=== PATIENT | female | born 1950 | race Caucasian/White ===

== ENCOUNTER 2017-09-16 01:44 | Inpatient (IN) | payer MEDICARE, OTHER ==
[~2017-09-16] VITALS: Ht 165.1 cm; Wt 43.5 kg
--- NOTE | 2017-09-16 01:52 | NUR ---
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 HX COPD. PATIENT IS ALERT AND RESPONSIVE. TACHYPENIEC, TACHYCARDIC. NONDIAPHORETIC. PLACED ON CARDIAC AND VS MONITORING. GOWNED. COMFORT MEASURES RENDERED. KEPT HOB ELEVATED. RT AT BEDSIDE.
--- NOTE | 2017-09-16 01:55 | NUR ---
STARTED A SALINE LOCK ON THE RFA G20, BLOOD DRAWN SENT TO LAB.
[2017-09-16] MEDS ORDERED: methylPREDNISolone SOD SUCC 125 MG/2ML VIAL ONE (01:58)
[2017-09-16] MEDS ORDERED: methylPREDNISolone SOD SUCC 125 MG/2ML VIAL IV ONE (02:00)
[2017-09-16] MEDS ORDERED: IPRATROPIUM NEB FS 0.5 MG/2.5 ML AMPUL.NEB NEB ONE (02:00)
[2017-09-16] MEDS ORDERED: ALBUTEROL FS 2.5 MG/3 ML VIAL.NEB CONTNEB ONE (02:00)
[2017-09-16 02:32] LABS: BASOPHILS % (AUTO) 0.2 % (0.0-2.0); HEMATOCRIT 40 % (33-45); HEMOGLOBIN 13.1 g/dL (11.5-14.8); LYMPHOCYTES # (AUTO) 3.4 /CMM (0.8-4.8); LYMPHOCYTES % (AUTO) 18.2 % (20.0-44.0); MEAN CORPUSCULAR HEMOGLOBIN 31 PG (26.0-33.0); MEAN CORPUSCULAR HGB CONC 33 g/dl (31.0-36.0); MEAN CORPUSCULAR VOLUME 95 fL (82-100); MONOCYTES # (AUTO) 0.9 /CMM (0.1-1.30); MONOCYTES % (AUTO) 4.9 % (2.0-12.0); NEUTROPHILS # (AUTO) 14.4 /CMM (1.8-8.9); NEUTROPHILS % (AUTO) 76.7 % (43.0-81.0); PLATELET COUNT (AUTO) 343 /CMM (150-450); RDW COEFFICIENT OF VARIATION 13.4 (11.5-15.0); RED BLOOD CELL COUNT(AUTO) 4.18 MIL/uL (4.0-5.2); WHITE BLOOD COUNT (AUTO) 18.8 K/uL (4.3-11.0)
[2017-09-16 02:41] LABS: CALCIUM, SERUM 9.7 mg/dL (8.5-10.1); CARBON DIOXIDE 33 mmol/L (21-32); CHLORIDE 94 mmol/L (98-107); CREATININE 0.7 mg/dL (0.6-1.3); GLUCOSE 138 mg/dL (74-106); SODIUM SERUM 138 mmol/L (136-145); UREA NITROGEN, BLOOD 12 mg/dL (7-18)
[2017-09-16 02:48] LABS: BAND % (MANUAL) 10 % (0.0-5.0); LYMPHOCYTES % (MANUAL) 22 % (16-48); MONOCYTES % (MANUAL) 5 % (0-11.0); NEUTROPHILS % (MANUAL) 63 (42-76)
[2017-09-16 02:51] LABS: TROPONIN I < 0.017 ng/mL (0.00-0.056)
[2017-09-16 02:54] LABS: ALANINE AMINOTRANSFERASE 27 U/L (12-78); ALBUMIN 3.7 g/dL (3.4-5.0); ALKALINE PHOSPHATASE 97 U/L (46-116); ASPARTATE AMINOTRANSFERASE 44 U/L (15-37); B-TYPE NATRIURETIC PEPTIDE 264 PG/ML (0-125); BILIRUBIN,DIRECT 0.1 mg/dL (0.0-0.2); BILIRUBIN,TOTAL 0.3 mg/dL (0.2-1.0); TOTAL PROTEIN, SERUM 8.5 g/dL (6.4-8.2)
[2017-09-16] MEDS ORDERED: ASPI-1169 PO (03:27)
--- NOTE | 2017-09-16 04:03 | NUR ---
PATIENT REPORTS FEELING BETTER POST BREATHING TREATMENT.
[2017-09-16] MEDS ORDERED: AZTREONAM 1 G VIAL ONE (04:15)
[2017-09-16] MEDS ORDERED: POTASSIUM CHLORIDE 20 MEQ TAB.PRT.SR PO ONE ×2 (04:27→04:30)
[2017-09-16] MEDS ORDERED: AZTREONAM 1 G in IV NS 0.9% 100 ML IV ONE (04:30)
[2017-09-16] MEDS ORDERED: LEVOFLOXACIN 750 MG /D5W 150ML PIGGYBACK IV ONE (04:30)
--- NOTE | 2017-09-16 04:31 | NUR ---
REPORT GIVEN TO IRINA NUNN FOR ADMISSION AND CYDNEY.
[2017-09-16] MEDS ORDERED: Z GUARD REMEDY 2 OZ OINT TP PRN (05:00)
--- NOTE | 2017-09-16 05:07 | NUR ---
TRANSFERRED PATIENT TO TELE BED 102 VIA ALS PROTOCOL, NO INCIDENT NOTED. ENDORSED TO IRINA FERGUSON ORDER TO BE GIVEN.
[2017-09-16 05:35] VITALS: BP 120/81
[2017-09-16] MEDS ORDERED: LEVOFLOXACIN 750 MG /D5W 150ML 150 ML IV ONE (06:00)
--- NOTE | 2017-09-16 06:00 | NUR ---
RN NOTES 05-30AM - ADMITTED A 66 YEARS OLD FEMALE AOX4 VERBALLY RESPONSIVE. PT IS UNDER EPIC RECEIVING DR. IS DR. ARSHAD. DX. WITH SEPSIS PT HAD HS. OF CHF,COPD, HTN, UTERINE CANCER, CAD ALLERGIC TO OPIOIDS- MEPERIDINE AND RELATED. WITH O2 2LPM VIA NC . SATING 94%. TELE MONITOR PLACED REVEALS ST HR 130'S RESP 32, BP 120/81MMHG, TEMP 99 DEG. FAHRENHEIT SATURATION 94%. WITH IV SITE ON RFA G 20 INTACT AND PATENT WITH ONGOING IV ATB CONTINUE FROM ER . NO ASE NOTED. AMBULATE BUT NOTED WITH SOB EXACERBATION. SKIN ASSESSMENT DONE SKIN IS INTACT . INSTRUCTED TO USED CALL LIGHT KEPT CALL LIGHT KEPT WITHIN EASY REACH. KEPT PT CLEAN AND DRY. WILL ENDORSED CONTINUITY OF CARE TO AM NURSE.
[2017-09-16] MEDS: LEVOFLOXACIN 750 MG /D5W 150ML 750 MG in PREMIX 1 EA IV SCH (06:03)
[2017-09-16] MEDS ORDERED: ACETAMINOPHEN 325 MG TABLET ONE (06:33)
[2017-09-16] MEDS: ACETAMINOPHEN 325 MG TABLET PO PRN (06:36)
--- NOTE | 2017-09-16 07:05 | NUR ---
RN INITIAL NOTE PATIENT RECEIVED IN BED. PATIENT IS AWAKE, ALERT AND ORIENTED. ABLE TO MAKE NEEDS KNOWN. NO S/S OF PAIN OR DISCOMFORT. DENIES PAIN AT THIS TIME. SINUS TACHY ON TELE MONITOR. RESPIRATIONS ARE EVEN AND UNLABORED. NO S/S OF RESPIRATORY DISTRESS OR SOB. SATING WELL ON 3L NASAL CANULA. SKIN IS WARM AND DRY TO TOUCH. IV SITE FLUSHED, PATENT. SAFETY PRECAUTIONS IMPLEMENTED, BED IN LOCKED, LOW POSITION WITH TWO SIDE RAILS UP. CALL LIGHT AND BELONGINGS WITHIN EASY REACH. WILL CONTINUE TO MONITOR.
[2017-09-16] MEDS ORDERED: TIOT18CA3 INH (07:47)
[2017-09-16] MEDS ORDERED: BUDE10.2 INH (07:47)
[2017-09-16] MEDS ORDERED: THEO300T22 PO (07:47)
[2017-09-16] MEDS ORDERED: CITA10TA9 PO (07:47)
[2017-09-16] MEDS ORDERED: MONT10TA22 PO (07:47)
[2017-09-16] MEDS: IPRATROPIUM NEB FS 0.5 MG/2.5 ML AMPUL.NEB NEB SCH ×3 (07:58→19:51)
[2017-09-16] MEDS: ALBUTEROL FS 2.5 MG/0.5 ML VIAL.NEB NEB SCH ×3 (07:58→19:51)
[2017-09-16 08:00] VITALS: BP 109/63
[2017-09-16] MEDS: methylPREDNISolone SOD SUCC 40 MG/ML VIAL IV SCH ×3 (08:30→16:30)
[2017-09-16] MEDS: ASPIRIN 81 MG TAB.CHEW PO SCH (08:30)
[2017-09-16] MEDS: MAGNESIUM HYDROXIDE 30 ML UDC PO PRN (09:59)
[2017-09-16] MEDS: ONDANSETRON HCL/PF 4 MG/2 ML VIAL IVP PRN ×2 (10:52→22:31)
[2017-09-16] MEDS: HYDROCODONE/APAP 5/325MG 1 EACH TABLET PO PRN (10:53)
[2017-09-16 12:00] VITALS: BP 126/66
[2017-09-16] MEDS: diphenhydrAMINE HCL 50 MG/ML VIAL IV PRN (15:49)
[2017-09-16 16:00] VITALS: BP 122/74
--- NOTE | 2017-09-16 19:08 | NUR ---
RN CLOSING NOTE CARRIED OUT ALL MD ORDERS, ANTICIPATED PT NEEDS. KEPT CLEAN AND DRY. WILL GIVE REPORT TO PM RN./
--- NOTE | 2017-09-16 19:20 | NUR ---
RN INITIAL NOTES RECEIVED PATIENT IN BED, SLEEPING WELL, EASILY AROUSABLE WITH VERBAL AND TACTILE STIMULI. PATIENT DENIES ANY PAIN AND DISCOMFORT. DENIES ANY SOB. PATIENT ON 2LPM OF O2 VIA NC, STILL WITH DIMINISHED BREATH SOUNDS ON AUSCULTATION. PATIENT WITH R FOREARM PIV, FLUSHED AND PATENT, NO SIGNS OF INFILTRATION. PATIENT IS SR ON TELE WITH HR OF 92. PATIENT'S NEEDS ANTICIPATED AND MET AT THIS TIME. BED IN LOW AND LOCKED POSITION. CALL LIGHT IN REACH. WILL MONITOR CLOSELY.
[2017-09-16 20:00] VITALS: BP 119/75
[2017-09-17] VITALS: BP 101/67
[2017-09-17] MEDS: ALBUTEROL FS 2.5 MG/0.5 ML VIAL.NEB NEB SCH ×4 (00:56→20:07)
[2017-09-17] MEDS: IPRATROPIUM NEB FS 0.5 MG/2.5 ML AMPUL.NEB NEB SCH ×4 (00:56→20:07)
[2017-09-17 04:00] VITALS: BP 123/75
[2017-09-17] MEDS: LEVOFLOXACIN 750 MG /D5W 150ML 750 MG in PREMIX 1 EA IV SCH (05:06)
--- NOTE | 2017-09-17 06:35 | NUR ---
RN CLOSING NOTES PATIENT WITH NO ACUTE CHANGE IN CONDITION OBSERVED OVERNIGHT. PATIENT STILL OBSERVED WITH SOB WITH EXERTION AND ADLS. REST PERIODS PROVIDED AND SAFETY AND COMFORT ENSURED. PATIENT'S NEEDS ANTICIPATED AND MET. ALL DUE MEDS GIVEN ORDERED. AM LABS DRAW. WILL ENDORSE ACCORDINGLY FOR CONTINUITY OF CARE.
[2017-09-17 07:32] LABS: BILIRUBIN,TOTAL 0.1 mg/dL (0.2-1.0); CALCIUM, SERUM 9.9 mg/dL (8.5-10.1); CREATININE 0.7 mg/dL (0.6-1.3); MAGNESIUM 2.1 mg/dL (1.8-2.4); PHOSPHORUS 2.9 mg/dL (2.5-4.9); POTASSIUM 3.7 mmol/L (3.5-5.1); TOTAL PROTEIN, SERUM 7.5 g/dL (6.4-8.2)
[2017-09-17 07:43] LABS: BASOPHILS % (AUTO) 0.1 % (0.0-2.0); HEMATOCRIT 35 % (33-45); HEMOGLOBIN 11.5 g/dL (11.5-14.8); LYMPHOCYTES # (AUTO) 1.2 /CMM (0.8-4.8); LYMPHOCYTES % (AUTO) 8.6 % (20.0-44.0); MEAN CORPUSCULAR HEMOGLOBIN 31 PG (26.0-33.0); MEAN CORPUSCULAR HGB CONC 33 g/dl (31.0-36.0); MEAN CORPUSCULAR VOLUME 96 fL (82-100); MONOCYTES # (AUTO) 0.9 /CMM (0.1-1.30); MONOCYTES % (AUTO) 6.6 % (2.0-12.0); NEUTROPHILS # (AUTO) 11.3 /CMM (1.8-8.9); NEUTROPHILS % (AUTO) 84.7 % (43.0-81.0); PLATELET COUNT (AUTO) 282 /CMM (150-450); RDW COEFFICIENT OF VARIATION 13.6 (11.5-15.0); RED BLOOD CELL COUNT(AUTO) 3.67 MIL/uL (4.0-5.2); WHITE BLOOD COUNT (AUTO) 13.4 K/uL (4.3-11.0)
[2017-09-17 07:48] LABS: THYROID STIMULATING HORMONE 0.606 uIU/mL (0.358-3.74)
[2017-09-17 08:00] VITALS: BP 115/71
--- NOTE | 2017-09-17 08:10 | NUR ---
RN INITIAL NOTE PATIENT RECEIVED IN BED, AWAKE, ALERT AND ORIENTED. ABLE TO MAKE NEEDS KNOWN. NO S/S OF PAIN OR DISCOMFORT. DENIES PAIN AT THIS TIME. SINUS RHYTHM ON TELE MONITOR. NO S/S OF RESPIRATORY DISTRESS OR SOB. SATING WELL ON 2L NASAL CANULA. SKIN IS WARM AND DRY TO TOUCH. IV SITE FLUSHED, PATENT. SAFETY PRECAUTIONS IMPLEMENTED, BED IN LOCKED, LOW POSITION WITH TWO SIDE RAILS UP. CALL LIGHT WITHIN EASY REACH. WILL CONTINUE TO MONITOR.
[2017-09-17] MEDS: ASPIRIN 81 MG TAB.CHEW PO SCH (08:30)
[2017-09-17] MEDS: methylPREDNISolone SOD SUCC 40 MG/ML VIAL IV SCH ×3 (08:30→17:31)
[2017-09-17 09:19] LABS: APPEARANCE,URINE CLOUDY (CLEAR); BILIRUBIN,URINE NEGATIVE (NEGATIVE); BLOOD, URINE NEGATIVE Ery/uL (NEGATIVE); COLOR,URINE YELLOW (YELLOW); KETONES,URINE NEGATIVE (NEGATIVE); LEUKOCYTE ESTERASE ,URINE NEGATIVE (NEGATIVE); NITRITE, URINE NEGATIVE (NEGATIVE); PROTEIN,URINE TRACE mg/dl (NEGATIVE); UGLUCOSE NEGATIVE (NEGATIVE); UROBILINOGEN,URINE 0.2 EU/dL (0.2)
[2017-09-17 09:50] LABS: BACTERIA,URINE Few /HPF (None Seen); RBC,URINE NONE SEEN /HPF (0-2); SQUAMOUS EPITHELIAL CELL,UR Few /HPF (None Seen); WBC,URINE 0-2 /HPF (0-3)
[2017-09-17 09:51] LABS: URINE AMORPHOUS URATE Many /HPF (None Seen)
[2017-09-17] MEDS: HYDROCODONE/APAP 5/325MG 1 EACH TABLET PO PRN (10:14)
[2017-09-17 12:00] VITALS: BP 126/66
[2017-09-17] MEDS: MULTIVITAMINS,THERAGRAN 1 UDTAB TABLET PO SCH (15:20)
[2017-09-17] MEDS: ACETAMINOPHEN 325 MG TABLET PO PRN (15:33)
[2017-09-17 16:00] VITALS: BP 118/68
[2017-09-17] MEDS: BOOST PLUS FOOD-VANILLA 237 ML BOX PO SCH (17:00)
[2017-09-17] MEDS: MAG HYDROX/AL HYDROX/SIMETH 30 ML UDC PO PRN (17:39)
[2017-09-17] MEDS: MAGNESIUM HYDROXIDE 30 ML UDC PO PRN (17:40)
--- NOTE | 2017-09-17 19:15 | NUR ---
RN INITIAL NOTES RECEIVED PATIENT IN BED, AWAKE AND ALERT, ORIENTED. PATIENT DENIES ANY PAIN AND DISCOMFORT. DENIES ANY SOB. PATIENT ON 2LPM OF O2 VIA NC, STILL NOTED TO BE SHORT OF BREATH WITH EXERTION. PATIENT WITH R FOREARM PIV, FLUSHED AND PATENT, NO SIGNS OF INFILTRATION. PATIENT IS ST ON TELE WITH HR OF 102. PATIENT'S NEEDS ANTICIPATED AND MET AT THIS TIME. BED IN LOW AND LOCKED POSITION. CALL LIGHT IN REACH. WILL MONITOR CLOSELY.
[2017-09-17 20:00] VITALS: BP 132/79
[2017-09-17] MEDS: ASCORBIC ACID 500 MG TABLET PO SCH (21:44)
[2017-09-17] MEDS: CHOLECALCIFEROL 1,000 UNIT TABLET (VIT D3) PO SCH (21:44)
[2017-09-18] VITALS (8 sets, daily range): BP systolic 127–145; BP diastolic 67–89
[2017-09-18] MEDS: ALBUTEROL FS 2.5 MG/0.5 ML VIAL.NEB NEB SCH ×4 (02:00→19:30)
[2017-09-18] MEDS: IPRATROPIUM NEB FS 0.5 MG/2.5 ML AMPUL.NEB NEB SCH ×4 (02:00→19:46)
[2017-09-18] MEDS: LEVOFLOXACIN 750 MG /D5W 150ML 750 MG in PREMIX 1 EA IV SCH (04:15)
--- NOTE | 2017-09-18 06:30 | NUR ---
RN CLOSING NOTES NO ACUTE CHANGE IN CONDITION OBSERVED OVERNIGHT. PATIENT'S NEEDS ANTICIPATED AND MET. REST PERIODS PROVIDED WITH ADLS FOR NOTED SOB WITH EXERTION. PATIENT'S COMFORT ENSURED. FALL PRECAUTIONS OBSERVED AT ALL TIMES. INSERTED NEW IV SITE ON PATIENT'S L WRIST, G22, INTACT AND PATENT. ALL DUE MEDS GIVEN ORDERED. WILL ENDORSE ACCORDINGLY FOR CONTINUITY OF CARE.
--- NOTE | 2017-09-18 08:00 | NUR ---
RN CECE: pt.is awake, A/Ox3, no pain now, O2sat. 90-93%, slightly wheezing, going for resp/Tx, , SR, SBP over 100, got POC explanation
[2017-09-18] MEDS: methylPREDNISolone SOD SUCC 40 MG/ML VIAL IV SCH ×3 (10:03→17:11)
[2017-09-18] MEDS: MULTIVITAMINS,THERAGRAN 1 UDTAB TABLET PO SCH (10:03)
[2017-09-18] MEDS: ASCORBIC ACID 500 MG TABLET PO SCH (10:03)
[2017-09-18] MEDS: BOOST PLUS FOOD-VANILLA 237 ML BOX PO SCH ×2 (10:03→17:12)
[2017-09-18] MEDS: ASPIRIN 81 MG TAB.CHEW PO SCH (10:03)
[2017-09-18] MEDS: CHOLECALCIFEROL 1,000 UNIT TABLET (VIT D3) PO SCH (10:03)
--- NOTE | 2017-09-18 12:00 | NUR ---
RN CECE: is in room, updated with pt.condition, VS, I/O, resp.Tx, home meds verification/evaluation, see new orders
[2017-09-18] MEDS: ONDANSETRON HCL/PF 4 MG/2 ML VIAL IVP PRN (12:52)
[2017-09-18 14:43] LABS: ABG BASE EXCESS 9.9 mmol/L; ABG OXYGEN SATURATION 96.4 % (92.0-98.5); ABG PCO2 58.6 mmHg (35.0-45.0); ABG PH 7.411 (7.350-7.450); ABG PO2 93.3 mmHg (75.0-100.0); AaDO2 37.2 mmHg; COHb 0.3 % (0.5-1.5); MetHb 0.4 % (0.0-1.5); O2Hb 95.7 % (94.0-97.0); SITE, ABG Right Radial; VENT MODE, BG NC 2 L
[2017-09-18] MEDS: THEOPHYLLINE ANHYDROUS 300 MG TAB.SR.12H PO SCH ×2 (15:44→20:50)
--- NOTE | 2017-09-18 19:05 | NUR ---
RN OPENING NOTES RECEIVED REPORT FROM AM RN. PATIENT IN BED, A/A/O X4, ABLE TO MAKE NEEDS KNOWN. BREATHING EVEN & UNLABORED ON O2 1L VIA NC. DENIES SOB OR DIFFICULTY BREATHING. ON TELE SINUS RHYTHM. LEFT WRIST IV #22 INTACT & PATENT W/ DRESSING CDI, SALINE LOCKED. DENIES ANY PAIN OR DISCOMFORT @ THIS TIME. SAFETY MEASURES IN PLACE W/ SIDE RAILS UP, BED LOCKED & IN LOWEST POSITION & CALL LIGHT WITHIN REACH. WILL CONTINUE TO MONITOR.
[2017-09-18] MEDS: diphenhydrAMINE HCL 50 MG/ML VIAL IV PRN (20:49)
--- NOTE | 2017-09-18 23:45 | NUR ---
RN NOTES SPOKE W/ DENNIS VALENZUELA REGARDING PATIENT'S REQUEST FOR ATIVAN D/T HER ANXIETY & RESTLESSNESS. RECEIVED ORDER FOR ATIVAN 0.5MG PO X1. ORDER NOTED & CARRIED OUT. WILL CONTINUE TO MONITOR.
[2017-09-18] MEDS ORDERED: LORAZEPAM 0.5 MG TABLET ONE (23:50)
[2017-09-19] VITALS: BP 133/87
[2017-09-19] MEDS ORDERED: LORAZEPAM 0.5 MG TABLET PO ONE
[2017-09-19] MEDS: ALBUTEROL FS 2.5 MG/0.5 ML VIAL.NEB NEB SCH ×4 (01:01→19:14)
[2017-09-19] MEDS: IPRATROPIUM NEB FS 0.5 MG/2.5 ML AMPUL.NEB NEB SCH ×4 (01:01→19:13)
[2017-09-19] MEDS: ACETAMINOPHEN 325 MG TABLET PO PRN ×2 (03:47→20:07)
[2017-09-19 04:00] VITALS: BP 144/87
--- NOTE | 2017-09-19 04:00 | NUR ---
RN NOTES PATIENT REFUSED BATH & LINEN CHANGE. PER PATIENT, SHE WANTS TO REST & NOT IN THE MOOD. WILL ENDORSE TO AM SHIFT.
[2017-09-19] MEDS: LEVOFLOXACIN 750 MG /D5W 150ML 750 MG in PREMIX 1 EA IV SCH (05:25)
--- NOTE | 2017-09-19 07:22 | NUR ---
RN NOTES RECEIVED PT FROM GLOVE WRAPPER IN STABLE CONDITION, A&0X3, ON 2L NC SATING 93% NO SOB OR DISTRESS NOTED. ST ON THE TELE MONITOR HR 125. L WRIST 22G IV SITE INTACT NO IVF. NO COMPLAINTS OF PAIN. BED LOCKED AND IN LOWEST POSITION, CALL LIGHT WITHIN REACH, SIDE RAILS UPX3, WILL CONT TO ASHLIE.
[2017-09-19 08:00] VITALS: BP 136/80
[2017-09-19] MEDS: ASPIRIN 81 MG TAB.CHEW PO SCH (08:11)
[2017-09-19] MEDS: THEOPHYLLINE ANHYDROUS 300 MG TAB.SR.12H PO SCH ×2 (08:11→20:07)
[2017-09-19] MEDS: CHOLECALCIFEROL 1,000 UNIT TABLET (VIT D3) PO SCH (08:11)
[2017-09-19] MEDS: MULTIVITAMINS,THERAGRAN 1 UDTAB TABLET PO SCH (08:12)
[2017-09-19] MEDS: methylPREDNISolone SOD SUCC 40 MG/ML VIAL IV SCH ×3 (08:12→16:15)
[2017-09-19] MEDS: ASCORBIC ACID 500 MG TABLET PO SCH (08:12)
[2017-09-19] MEDS: BOOST PLUS FOOD-VANILLA 237 ML BOX PO SCH ×2 (09:00→16:16)
[2017-09-19 12:00] VITALS: BP 146/90
[2017-09-19] MEDS: ALPRAZOLAM 0.25 MG TABLET PO PRN ×2 (14:24→20:08)
[2017-09-19 16:00] VITALS: BP 146/90
--- NOTE | 2017-09-19 18:25 | NUR ---
RN NOTES PT REMAINED IN STABLE CONDITION THROUGHOUT THE SHIFT, ALL NEEDS MET, NO SIGNIFICANT CHANGES. NO COMPLAINTS OF PAIN. BED LOCKED, CALL LIGHT WITHIN REACH, WILL ENDORSE TO ONCOMING SHIFT.
--- NOTE | 2017-09-19 19:05 | NUR ---
RN OPENING NOTES RECEIVED REPORT FROM VINCENT NUNN. PATIENT IN BED, A/A/O X4, ABLE TO MAKE NEEDS KNOWN. BREATHING EVEN & UNLABORED ON O2 2L VIA NC. DENIES SOB OR DIFFICULTY BREATHING. ON TELE SINUS RHYTHM-SINUS TACH. LEFT WRIST IV #22 INTACT & PATENT W/ DRESSING CDI, SALINE LOCKED. DENIES ANY PAIN OR DISCOMFORT @ THIS TIME. SAFETY MEASURES IN PLACE W/ SIDE RAILS UP, BED LOCKED & IN LOWEST POSITION & CALL LIGHT WITHIN REACH. WILL CONTINUE TO MONITOR.
[2017-09-19 20:00] VITALS: BP 137/85
[2017-09-20] VITALS: BP 157/98
[2017-09-20] MEDS: ALBUTEROL FS 2.5 MG/0.5 ML VIAL.NEB NEB SCH ×2 (01:40→07:07)
[2017-09-20] MEDS: IPRATROPIUM NEB FS 0.5 MG/2.5 ML AMPUL.NEB NEB SCH ×2 (01:50→07:07)
[2017-09-20] MEDS: ONDANSETRON HCL/PF 4 MG/2 ML VIAL IVP PRN (02:39)
[2017-09-20 04:00] VITALS: BP 144/83
[2017-09-20] MEDS ORDERED: LEVOFLOXACIN (750 MG) 750 MG TABLET PO SCH (05:00)
[2017-09-20] MEDS: MAG HYDROX/AL HYDROX/SIMETH 30 ML UDC PO PRN (06:15)
--- NOTE | 2017-09-20 07:30 | NUR ---
TIME STUDY STATISTICIAN OPENING RECEIVED PATIENT DENIES PAIN, SOB OR DIFFICULTY BREATHING. PATIENT STATES SHE WANTS TO GO HOME TODAY HOWEVER SHE IS CONCERNED HER ANXIETY WILL PREVENT THAT. WILL GIVE PRN XANAX. PATIENT STATES SHE WAS TAKING A MEDICATION AND ABOUT A WEEK OR 2 AGO STOPPED IT COLD TURKEY AND SHE IS TRYING TO FIGURE OUT WHICH ONE IT WAS. PATIENT IS TACHYCARDIC AROUND 130'S AND SHE STATES THIS HAPPENS WHEN SHE GETS ANXIOUS AND IS TRYING TO CALM DOWN. WILL F/U WITH MD TODAY. PATIENT APPEARS STABLE AT THIS TIME. ALL NEEDS IN REACH, BED LOWERED AND LOCKED, RAILS UPX3 FOR SAFETY WITH BED ALARM ON. PATIENT INDEPENDENT IN BED. WILL ROUND Q2H OR LESS PER NEEDS.
[2017-09-20 08:00] VITALS: BP 145/92
[2017-09-20] MEDS: ASCORBIC ACID 500 MG TABLET PO SCH (08:16)
[2017-09-20] MEDS: THEOPHYLLINE ANHYDROUS 300 MG TAB.SR.12H PO SCH (08:17)
[2017-09-20] MEDS: ALPRAZOLAM 0.25 MG TABLET PO PRN (08:17)
[2017-09-20] MEDS: CHOLECALCIFEROL 1,000 UNIT TABLET (VIT D3) PO SCH (08:17)
[2017-09-20] MEDS: methylPREDNISolone SOD SUCC 40 MG/ML VIAL IV SCH (08:17)
[2017-09-20] MEDS: ASPIRIN 81 MG TAB.CHEW PO SCH (08:17)
[2017-09-20] MEDS: MULTIVITAMINS,THERAGRAN 1 UDTAB TABLET PO SCH (08:17)
[2017-09-20] MEDS: BOOST PLUS FOOD-VANILLA 237 ML BOX PO SCH (08:20)
--- NOTE | 2017-09-20 10:05 | NUR ---
FOLDER HAND NOTES DR GARCIA AT BEDSIDE. UPDATED MD ON PATIENT CONDITION AND TELEMETRY. ALSO PATIENT STATES ALMOST A MONTH AGO SHE STOPPED TAKING CELEXA. AWARE.
--- NOTE | 2017-09-20 10:45 | NUR ---
BIODIESEL PRODUCT DEVELOPMENT MANAGEREDUCATIONAL PROGRAM DIRECTOR PATIENT IV REMOVED PRESSURE AND DRESSING APPLIED NO BLEEDING NOTED. CATH TIP INTACT. PATIENT EDUCATED ON DC MATERIAL AND STATED UNDERSTANDING. PATIENT DID NOT WANT ME TO MAKE FOLLOW UP APPOINTMENT WITH DR LE OFFICE. GAVE PATIENT ADDRESS AND PHONE # FOR OFFICE. PATIENT SIGNED DC MATERIAL AND ALL BELONGINGS ACCOUNTED FOR. PATIENT HAS HOME O2 SET UP ALREADY AND PRIVATE TRANSPORT PROVIDED OXYGEN TANK UPON DISCHARGE. PATIENT GIVEN RX AND EDUCATED ON ALL PRESCRIPTIONS. PATIENT LEFT WITH ASSISTANCE YOVANI ZHU AND TAKEN TO PRIVATE VEHICLE NO COMPLICATIONS NOTED. PATIENT LEFT AT BASELINE CONDITION.
[2017-09-20] MEDS ORDERED: ALBU18HF2 INH (22:35)
[2017-09-20] MEDS ORDERED: FLUT1DIS3 IH (22:35)
[2017-09-20] MEDS ORDERED: LEVO500T75 PO (22:35)
[2017-09-20] MEDS ORDERED: PRED20TA PO (22:35)
[2017-09-20] MEDS ORDERED: ALPR0.25 PO (22:35)
== END 2017-09-20 10:51 | disposition home or self-care (01) | DRG 193 ==
LOC: ER 01:44 → TELE1 04:27
PROVIDERS: ADMIT Nurse Practitioner Acute Care; ATTEND Nurse Practitioner Acute Care
DX: J15.9 Unspecified bacterial pneumonia (principal); J96.01 Acute respiratory failure with hypoxia; E44.0 Moderate protein-calorie malnutrition; I50.32 Chronic diastolic (congestive) heart failure; J44.0 Chronic obstructive pulmonary disease with (acute) lower respiratory infection; J44.1 Chronic obstructive pulmonary disease with (acute) exacerbation; I25.10 Atherosclerotic heart disease of native coronary artery without angina pectoris; I11.0 Hypertensive heart disease with heart failure; E87.6 Hypokalemia; Z79.82 Long term (current) use of aspirin; Z87.891 Personal history of nicotine dependence; Z99.81 Dependence on supplemental oxygen; Z85.42 Personal history of malignant neoplasm of other parts of uterus; Z88.5 Allergy status to narcotic agent; Z79.899 Other long term (current) drug therapy
CPT/HCPCS: 36415; 36600; 71010-TC; 80048-TC; 80061-TC; 80076-TC; 81000-TC; 83605-TC; 83735-TC; 83880; 84100-TC; 84443-TC; 84484-TC; 85025-TC; 87040-TC; 87081-TC; A4216; A4606; J1200; J1956; J2405; J2920; J2930; J3490; J7030

== ENCOUNTER 2017-09-20 22:29 | Inpatient (IN) | payer MEDICARE, OTHER ==
[~2017-09-20] VITALS: Ht 154.9 cm; Wt 44.0 kg
[~2017-09-20 22:29] MED LIST: ASPI-1169 PO; BUDE10.2 INH; MONT10TA22 PO; THEO300T22 PO; TIOT18CA3 INH
[2017-09-20] MEDS ORDERED: IV NS 0.9% 1,000 ML IV ONE (22:31)
[2017-09-20] MEDS ORDERED: ALBUTEROL FS 2.5 MG/3 ML VIAL.NEB ONE (22:34)
[2017-09-20] MEDS ORDERED: IPRATROPIUM NEB FS 0.5 MG/2.5 ML AMPUL.NEB ONE (22:34)
[2017-09-20] MEDS ORDERED: FLUT1DIS3 IH (22:35)
[2017-09-20] MEDS ORDERED: ALPR0.25 PO (22:35)
[2017-09-20] MEDS ORDERED: PRED20TA PO (22:35)
[2017-09-20] MEDS ORDERED: LEVO500T75 PO (22:35)
[2017-09-20] MEDS ORDERED: ALBU18HF2 INH (22:35)
--- NOTE | 2017-09-20 22:35 | NUR ---
PT TO ER BED 5. PT BIB [facility] C/O SOB X 3 WEEKS. PER EMS PT SAT 80% ON ARRIVAL TO HOME. PT PLACED IN A GOWN AND ON COMMERCIAL LAWN SPECIALIST. VSS/RESP EVEN UNLABORED/NAD NOTED/SKIN WARM AND DRY/DENIES N-V-D/AOX4. AWAITING MD CALLOWAY. PT PLACE ON N/C 4LPM; O2 SAT 96%.
--- NOTE | 2017-09-20 22:35 | NUR ---
RT AT BEDSIDE FOR NEB TX PER MD ORDERS.
[2017-09-20] MEDS ORDERED: methylPREDNISolone SOD SUCC 125 MG/2ML VIAL ONE (22:40)
--- NOTE | 2017-09-20 22:40 | NUR ---
BLOOD DRAWN FROM IV AND HANDED OVER TO LAB AT BEDSIDE.
[2017-09-20 22:45] LABS: BASOPHILS % (AUTO) 0.2 % (0.0-2.0); EOSINOPHILS % (AUTO) 0.2 % (0.0-6.0); HEMATOCRIT 40 % (33-45); HEMOGLOBIN 12.9 g/dL (11.5-14.8); LYMPHOCYTES # (AUTO) 2.9 /CMM (0.8-4.8); LYMPHOCYTES % (AUTO) 18.1 % (20.0-44.0); MEAN CORPUSCULAR HEMOGLOBIN 31 PG (26.0-33.0); MEAN CORPUSCULAR HGB CONC 32 g/dl (31.0-36.0); MEAN CORPUSCULAR VOLUME 95 fL (82-100); MONOCYTES # (AUTO) 1.4 /CMM (0.1-1.30); MONOCYTES % (AUTO) 8.4 % (2.0-12.0); NEUTROPHILS # (AUTO) 11.8 /CMM (1.8-8.9); NEUTROPHILS % (AUTO) 73.1 % (43.0-81.0); PLATELET COUNT (AUTO) 497 /CMM (150-450); RDW COEFFICIENT OF VARIATION 13.4 (11.5-15.0); WHITE BLOOD COUNT (AUTO) 16.2 K/uL (4.3-11.0)
--- NOTE | 2017-09-20 22:50 | NUR ---
XRAY AT BEDSIDE.
[2017-09-20 22:58] LABS: CALCIUM, SERUM 9.4 mg/dL (8.5-10.1); CARBON DIOXIDE 38 mmol/L (21-32); CHLORIDE 96 mmol/L (98-107); CREATININE 0.7 mg/dL (0.6-1.3); GLUCOSE 124 mg/dL (74-106); POTASSIUM 4.1 mmol/L (3.5-5.1); SODIUM SERUM 139 mmol/L (136-145); UREA NITROGEN, BLOOD 18 mg/dL (7-18)
[2017-09-20] MEDS ORDERED: IPRATROPIUM NEB FS 0.5 MG/2.5 ML AMPUL.NEB NEB ONE (23:00)
[2017-09-20] MEDS ORDERED: ALBUTEROL FS 2.5 MG/3 ML VIAL.NEB NEB ONE (23:00)
[2017-09-20] MEDS ORDERED: methylPREDNISolone SOD SUCC 125 MG/2ML VIAL IV ONE (23:00)
[2017-09-20 23:04] LABS: ALANINE AMINOTRANSFERASE 25 U/L (12-78); ALBUMIN 3.5 g/dL (3.4-5.0); ALKALINE PHOSPHATASE 83 U/L (46-116); ASPARTATE AMINOTRANSFERASE 24 U/L (15-37); BILIRUBIN,TOTAL 0.2 mg/dL (0.2-1.0); TOTAL PROTEIN, SERUM 7.9 g/dL (6.4-8.2)
[2017-09-20 23:08] LABS: TROPONIN I < 0.017 ng/mL (0.00-0.056)
[2017-09-20] MEDS ORDERED: IOHEXOL-350 100 ML VIAL IV ONE (23:32)
--- NOTE | 2017-09-20 23:53 | NUR ---
PT TO CT VIA STRETCHER, VSS.
[2017-09-21] VITALS (7 sets, daily range): BP systolic 127–158; BP diastolic 72–95
--- NOTE | 2017-09-21 00:10 | NUR ---
PT BACK FROM CT.
[2017-09-21] MEDS ORDERED: LEVOFLOXACIN 750 MG /D5W 150ML 150 ML IV ONE ×2 (00:38→01:00)
--- NOTE | 2017-09-21 00:56 | NUR ---
LAB AT BEDSIDE TO OBTAIN BLOOD CULT X 2. URINE SPECIMAN OBTAINED AND HANDED OVER TO THE LAB.
[2017-09-21] MEDS ORDERED: IV NS 0.9% 1,000 ML BAG IV ONE (01:00)
--- NOTE | 2017-09-21 01:08 | NUR ---
PATIENT ASSIGNED TO TELE 304-1, WILL BE ADMITTED TO FRONT OFFICE ADMINISTRATOR PANEL NET SOFTWARE ENGINEER DENNIS VALENZUELA, ADMITTING DIAGNOSIS BILATERAL PNA
--- NOTE | 2017-09-21 01:12 | NUR ---
PAGED PULL OVER PANEL CONCRETE RUBBER DENNIS VALENZUELA
--- NOTE | 2017-09-21 01:35 | NUR ---
ENDORSED TO RUEMY FOR CYDNEY.
--- NOTE | 2017-09-21 01:43 | NUR ---
PT TRANS TO TELE 304-2 VIA STRETCHER WITH RN PER ACLS PROTOCOL. VSS.
--- NOTE | 2017-09-21 01:50 | NUR ---
GREENHOUSE WORKER NOTES ADMITTED PT ALERT, AWAKE,VERBALLY RESPONSIVE ,ON O2 VIA N/C AT 2L/MIN .O2SAT 94%.DENIES ANY PAIN OR DISCOMFORT AT THIS TIME. IV SITES LT WRIST, LT AC INTACT, PATENT, RECEIVING LEVAQUIN 750MG IV. COMPLAINED OF ANXIETY, NOTIFIED CATIA VALENZUELA.NEW ORDER RECEIVED FOR XANAX 0.25MG Q8H PRN,NOTED AND CARRIED OUT,ADMINISTERED ORDERED. SKIN INTACT, CALL LIGHT WITHIN REACH, KEPT CLEAN AND COMFORTABLE.ATTENDED ALL NEEDS.WILL CONTINUE TO MONITOR ACCORDINGLY.
[2017-09-21] MEDS ORDERED: ACETAMINOPHEN 325 MG TABLET PO PRN (02:00)
[2017-09-21] MEDS ORDERED: HYDROCODONE/APAP 5/325MG 1 EACH TABLET PO PRN (02:00)
[2017-09-21] MEDS ORDERED: MAGNESIUM HYDROXIDE 30 ML UDC PO PRN (02:00)
[2017-09-21] MEDS ORDERED: Z GUARD REMEDY 2 OZ OINT TP PRN (02:00)
[2017-09-21] MEDS ORDERED: ONDANSETRON HCL/PF 4 MG/2 ML VIAL IVP PRN (02:00)
[2017-09-21] MEDS ORDERED: MAG HYDROX/AL HYDROX/SIMETH 30 ML UDC PO PRN (02:00)
--- NOTE | 2017-09-21 02:00 | NUR ---
SINUS TACHYCARDIA 104.WILL CONTINUE TO MONITOR.
[2017-09-21] MEDS ORDERED: ALPRAZOLAM 0.25 MG TABLET ONE (02:51)
[2017-09-21] MEDS ORDERED: ALPRAZOLAM 0.25 MG TABLET PO PRN (03:00)
--- NOTE | 2017-09-21 06:32 | NUR ---
SALVAGE DIVER CLOSING NOTES PT IN BED AWAKE,ALERT,VERBALLY RESPONSIVE,ON O2 VIA N/C NO SOB,NO APPARENT DISTRESS NOTED. DENIES ANY PAIN OR DISCOMFORT AT THIS TIME. CALL LIGHT WITHIN REACH, ATTENDED ALL NEEDS. WILL CONTINUE TO MONITOR ACCORDINGLY
[2017-09-21] MEDS: IPRATROPIUM NEB FS 0.5 MG/2.5 ML AMPUL.NEB NEB SCH ×3 (07:17→19:22)
[2017-09-21] MEDS: ALBUTEROL FS 2.5 MG/0.5 ML VIAL.NEB NEB SCH ×3 (07:17→19:22)
--- NOTE | 2017-09-21 07:56 | NUR ---
MOTORIZED SQUAD SERGEANT OPENING NOTES PT A&0X3. PT WITH TELE MONITORING. PT WITH NC AT 2LPM, REPORTING HER 'REGULAR' AMOUNT OF SOB OR BREATH. LUNGS AUSCULTATED DIMINISHED BUT PREDOMINANTLY CLEAR. PT REPORTING MINOR GERMANIZED PAIN. PT WITH IVC AT L WRIST G#18 INTACT SALINE FLUSHED AND PATENT. PT ALSO WITH IVC AT L AC G#18 INTACT SALINE FLUSHED AND PATENT. PT BED IN LOWEST LOCKED POSITION WITH HANDRAILSX2 3 AND CALL OREILLY WITHIN REACH. PT REQUESTING ATIVAN FOR ANXIETY. PT BRIEFED ON TODAY'S POC AND IS WITHOUT CONCERN OR COMPLAINT AT THIS TIME.
[2017-09-21] MEDS: ASPIRIN 81 MG TAB.CHEW PO SCH (08:59)
[2017-09-21] MEDS: methylPREDNISolone SOD SUCC 40 MG/ML VIAL IV SCH ×2 (08:59→12:44)
[2017-09-21] MEDS: MONTELUKAST SODIUM (10MG) 10 MG TABLET PO SCH (08:59)
[2017-09-21] MEDS ORDERED: ALPRAZOLAM 0.25 MG TABLET PO SCH (09:00)
--- NOTE | 2017-09-21 10:30 | NUR ---
MS RN NOTES. D/C TELE MONITORING.
[2017-09-21] MEDS: THEOPHYLLINE ANHYDROUS 300 MG TAB.SR.12H PO SCH ×2 (10:54→16:00)
[2017-09-21] MEDS: FLUTICASONE/VILANTEROL 1 EACH BLST.W.DEV IH SCH (10:55)
[2017-09-21] MEDS: BUDESONIDE RESPULE INH 0.25 MG/2 ML AMPUL.NEB NEB SCH (11:02)
[2017-09-21] MEDS ORDERED: ZOLPIDEM TARTRATE 10 MG TABLET PO PRN (15:30)
[2017-09-21] MEDS: IV NS 0.9% 1,000 ML IV SCH (15:59)
[2017-09-21] MEDS: ALPRAZOLAM 1 MG TABLET PO PRN (16:00)
--- NOTE | 2017-09-21 18:24 | NUR ---
RN CLOSING NOTES. PT REMAINS A&0X3 RESTING IN BED. PT WITH O2 VIA NC AT 3LPM WITH FREQUENT PERIODS OF SOB. ANXIETY REDUCED THIS AFTERNOON R/T INCREASED ANXIOLYTIC RX. PT REPORTING NO PAIN. PT WITH IVCX2 INTACT AND OPERATIONAL AT L WRIST G#18 AND L AC G#18. PT NOW WITH TEODORON DAVE FOR PM SLEEP ASSISTANCE. BED IN LOWEST LOCKED POSITION WITH CALL OREILLY WITHIN REACH. ALL DAY SHIFT DUTIES ATTENDED TO, WILL ENDORSE TO NIGHT NURSE.
--- NOTE | 2017-09-21 19:30 | NUR ---
MS NUNN INITIAL NOTES PT IS IN BED, AWAKE AND ALERT, ABLE TO MAKE NEEDS KNOWN. BREATHING EVENLY AND UNLABORED ON 3L NC. NO SIGNS OF SOB OR DISTRESS. DENIES PAIN. BED IS IN LOW AND LOCKED POSITION CALL Addendum: 09/21/17 at 2009 by MICHAEL HUTTON LIGHT WITHIN REACH. IV IS INTACT AND PATENT. WILL CONTINUE TO MONITOR PT
[2017-09-21] MEDS: LEVOFLOXACIN 750 MG /D5W 150ML 750 MG in PREMIX 1 EA IV SCH (22:00)
[2017-09-22] MEDS: ALBUTEROL FS 2.5 MG/0.5 ML VIAL.NEB NEB SCH ×4 (01:30→19:46)
[2017-09-22] MEDS: IPRATROPIUM NEB FS 0.5 MG/2.5 ML AMPUL.NEB NEB SCH ×4 (01:50→19:46)
[2017-09-22] MEDS: IV NS 0.9% 1,000 ML IV SCH ×3 (02:29→20:20)
[2017-09-22] MEDS: ALPRAZOLAM 1 MG TABLET PO PRN ×3 (03:38→23:08)
--- NOTE | 2017-09-22 06:24 | NUR ---
MS RN CLOSING NOTES PT IS IN BED SLEEPING, EASILY AROUSED. ON 3L NC, NO SIGNS OF SOB OR DISTRESS. IV ACCESS IS INTACT AND RUNNING WITH NS @100 ML/HR. NO ACUTE CHANGES DURING THE SHIFT. ALL NEEDS WERE ANTICIPATED AND MET. BED IS IN LOW AND LOCKED POSITION, CALL LIGHT WITHIN REACH. WILL ENDORSE TO DAY SHIFT
[2017-09-22 06:27] LABS: BASOPHILS % (AUTO) 0.1 % (0.0-2.0); EOSINOPHILS % (AUTO) 0.1 % (0.0-6.0); HEMATOCRIT 33 % (33-45); HEMOGLOBIN 10.9 g/dL (11.5-14.8); LYMPHOCYTES # (AUTO) 2.2 /CMM (0.8-4.8); LYMPHOCYTES % (AUTO) 13.5 % (20.0-44.0); MEAN CORPUSCULAR HEMOGLOBIN 31 PG (26.0-33.0); MEAN CORPUSCULAR HGB CONC 33 g/dl (31.0-36.0); MEAN CORPUSCULAR VOLUME 96 fL (82-100); MONOCYTES # (AUTO) 1.4 /CMM (0.1-1.30); MONOCYTES % (AUTO) 8.2 % (2.0-12.0); NEUTROPHILS # (AUTO) 12.8 /CMM (1.8-8.9); NEUTROPHILS % (AUTO) 78.1 % (43.0-81.0); PLATELET COUNT (AUTO) 401 /CMM (150-450); RDW COEFFICIENT OF VARIATION 13.1 (11.5-15.0); RED BLOOD CELL COUNT(AUTO) 3.48 MIL/uL (4.0-5.2); WHITE BLOOD COUNT (AUTO) 16.4 K/uL (4.3-11.0)
[2017-09-22 06:42] LABS: CALCIUM, SERUM 8.7 mg/dL (8.5-10.1); CREATININE 0.5 mg/dL (0.6-1.3); MAGNESIUM 2.2 mg/dL (1.8-2.4); PHOSPHORUS 1.4 mg/dL (2.5-4.9); POTASSIUM 3.2 mmol/L (3.5-5.1)
--- NOTE | 2017-09-22 07:42 | NUR ---
MS RN: INITIAL NOTE RECEIVED PT A/OX2-3. MS. CONTINENT. USES BED HUERTA. AMBULATES WITH ASSIST. SKIN INTACT, ON CARDIAC DIET. NO DISTRESS NOTED. NO SOB NOTED. ON 4L NC SATING AT 96%. LEFT WRIST #18 SL. LFT AC #18 RUNNING NS AT 100ML/HR. SITE CLEAR AND PATENT. RESTING COMFORTABLY IN BED. CALL LIGHT WITHIN REACH.
[2017-09-22 08:00] VITALS: BP 128/77
[2017-09-22] MEDS: ASPIRIN 81 MG TAB.CHEW PO SCH (08:20)
[2017-09-22] MEDS: FLUTICASONE/VILANTEROL 1 EACH BLST.W.DEV IH SCH (08:20)
[2017-09-22] MEDS: methylPREDNISolone SOD SUCC 40 MG/ML VIAL IV SCH (08:20)
[2017-09-22] MEDS: THEOPHYLLINE ANHYDROUS 300 MG TAB.SR.12H PO SCH ×2 (08:20→17:35)
[2017-09-22] MEDS: MONTELUKAST SODIUM (10MG) 10 MG TABLET PO SCH (08:20)
[2017-09-22] MEDS ORDERED: POTASSIUM PHOSPHATE MM 15 MMOL in IV D5W 250 ML IV SCH (09:00)
[2017-09-22] MEDS: BUDESONIDE RESPULE INH 0.25 MG/2 ML AMPUL.NEB NEB SCH ×2 (09:32→16:37)
[2017-09-22] MEDS: POTASSIUM PHOSPHATE MM 7.5 MMOL in IV D5W 100 ML IV SCH ×2 (10:25→13:49)
[2017-09-22] MEDS: VANCOMYCIN 500 MG in IV D5W 100 ML IV SCH ×2 (11:14→22:08)
[2017-09-22] MEDS ORDERED: FEE PK DOSING 1 MIN EA MC ONE (12:23)
--- NOTE | 2017-09-22 12:26 | NUR ---
D/C BOTH IV ON LEFT ARM. L AC LEAKING. L WRIST LEAKING. STARTED NEW IV ON L WRIST #20. SITE CLEAR AND PATENT.
[2017-09-22] MEDS ORDERED: POTASSIUM CHLORIDE 20 MEQ TAB.PRT.SR PO SCH (12:30)
[2017-09-22 16:00] VITALS: BP 114/69
--- NOTE | 2017-09-22 17:03 | NUR ---
spoke with Don - clothing room supervisor at the [facility] confirmed patient resides at the [facility] [phone]. Patient ambulates with a walker,requires assistance with adl's. She is currently on service with [facility] [phone]. Plan to dc back to ID once discharge. Addendum: 09/22/17 at 1703 by RAFIA HOOKS RN Amended: Links added.
--- NOTE | 2017-09-22 18:50 | NUR ---
MS RN: CLOSING NOTE PT A/OX2-3. TOOK ALL MEDICATIONS ON TIME. NO ADVERSE REACTIONS NOTED. NO PAIN NOTED. NO DISTRESS NOTED. ON 4L NC SATING AT 96%. CONTINENT AND USES DIAPER. SKIN INTACT. POTASSIUM AND PHOS REPLACED DUE TO LOW LAB VALUES IN AM. L WRIST IV #20 RUNNING NS AT 100ML/HR. SITE CLEAR AND PATENT. NO N/V NOTED. RESTING COMFORTABLY IN BED. CALL LIGHT WITHIN REACH.
--- NOTE | 2017-09-22 19:35 | NUR ---
MS RN INITIAL NOTES PT IS IN BED SLEEPING, EASILY AROUSED. NO SIGNS OF SOB OR DISTRESS. BREATHING EVENLY AND UNLABORED ON 4L NC. DENIES PAIN AT THIS TIME. IV FLUIDS RUNNING AT 100 ML/HR. WILL OBTAIN URINE FOR URINE CX. BED IS IN LOW AND LOCKED POSITION, CALL LIGHT WITHIN REACH. WILL CONTINUE TO MONITOR PT.
[2017-09-22 19:52] VITALS: BP 96/57
[2017-09-22] MEDS: LEVOFLOXACIN 750 MG /D5W 150ML 750 MG in PREMIX 1 EA IV SCH (22:10)
[2017-09-23 01:18] LABS: APPEARANCE,URINE CLEAR (CLEAR); BILIRUBIN,URINE NEGATIVE (NEGATIVE); BLOOD, URINE NEGATIVE Ery/uL (NEGATIVE); COLOR,URINE YELLOW (YELLOW); KETONES,URINE NEGATIVE (NEGATIVE); LEUKOCYTE ESTERASE ,URINE NEGATIVE (NEGATIVE); NITRITE, URINE NEGATIVE (NEGATIVE); PROTEIN,URINE NEGATIVE (NEGATIVE); UGLUCOSE NEGATIVE (NEGATIVE); UROBILINOGEN,URINE 0.2 EU/dL (0.2)
[2017-09-23] MEDS: ALBUTEROL FS 2.5 MG/0.5 ML VIAL.NEB NEB SCH ×4 (01:47→19:30)
[2017-09-23] MEDS: IPRATROPIUM NEB FS 0.5 MG/2.5 ML AMPUL.NEB NEB SCH ×4 (01:47→19:30)
--- NOTE | 2017-09-23 06:07 | NUR ---
MS RN CLOSING NOTES PT IS SITTING UP IN BED RESTING. NO SIGNS OF SOB OR DISTRESS, BREATHING EVENLY AND UNLABORED ON 4L NC. NO ACUTE CHANGES THROUGHOUT THE SHIFT. URINE SAMPLE FOR CULTURE COLLECTED AND PENDING. IV ACCESS IS INTACT AND INFUSING. BED IS IN LOW AND LOCKED POSITION, CALL LIGHT WITHIN REACH. WILL ENDORSE TO DAYSHIFT.
[2017-09-23 06:42] LABS: BASOPHILS % (AUTO) 0.1 % (0.0-2.0); EOSINOPHILS % (AUTO) 0.2 % (0.0-6.0); HEMATOCRIT 33 % (33-45); HEMOGLOBIN 10.6 g/dL (11.5-14.8); LYMPHOCYTES # (AUTO) 2.4 /CMM (0.8-4.8); LYMPHOCYTES % (AUTO) 15.1 % (20.0-44.0); MEAN CORPUSCULAR HEMOGLOBIN 31 PG (26.0-33.0); MEAN CORPUSCULAR HGB CONC 33 g/dl (31.0-36.0); MEAN CORPUSCULAR VOLUME 96 fL (82-100); MONOCYTES # (AUTO) 1.1 /CMM (0.1-1.30); MONOCYTES % (AUTO) 7.2 % (2.0-12.0); NEUTROPHILS % (AUTO) 77.4 % (43.0-81.0); PLATELET COUNT (AUTO) 407 /CMM (150-450); RDW COEFFICIENT OF VARIATION 13.2 (11.5-15.0); RED BLOOD CELL COUNT(AUTO) 3.43 MIL/uL (4.0-5.2); WHITE BLOOD COUNT (AUTO) 15.6 K/uL (4.3-11.0)
--- NOTE | 2017-09-23 07:24 | NUR ---
MS RN: INITIAL NOTE RECEIVED PT A/OX2-3. ON MS. CONTINENT USES BED HUERTA. AMBULATED WITH ASSIST. SKIN INTACT. ON CARDIAC DIET. L WRIST #20 RUNNING NS AT 100ML/HR. SITE CLEAR AND PATENT. NO REDNESS NOTED. NO INFILTRATION NOTED. ON 4L SATING AT 95%. NO DISTRESS NOTED. NO SOB NOTED. NO PAIN NOTED. RESTING COMFORTABLY IN BED. CALL LIGHT WITHIN REACH.
[2017-09-23 07:27] LABS: CALCIUM, SERUM 8.8 mg/dL (8.5-10.1); CREATININE 0.5 mg/dL (0.6-1.3); MAGNESIUM 2.2 mg/dL (1.8-2.4); PHOSPHORUS 1.9 mg/dL (2.5-4.9); POTASSIUM 3.2 mmol/L (3.5-5.1)
[2017-09-23 08:00] VITALS: BP 129/77
[2017-09-23] MEDS: IV NS 0.9% 1,000 ML IV SCH ×2 (08:17→16:34)
[2017-09-23] MEDS: THEOPHYLLINE ANHYDROUS 300 MG TAB.SR.12H PO SCH ×2 (08:18→16:33)
[2017-09-23] MEDS: methylPREDNISolone SOD SUCC 40 MG/ML VIAL IV SCH (08:18)
[2017-09-23] MEDS: FLUTICASONE/VILANTEROL 1 EACH BLST.W.DEV IH SCH (08:18)
[2017-09-23] MEDS: ASPIRIN 81 MG TAB.CHEW PO SCH (08:18)
[2017-09-23] MEDS: MONTELUKAST SODIUM (10MG) 10 MG TABLET PO SCH (08:18)
[2017-09-23] MEDS: BUDESONIDE RESPULE INH 0.25 MG/2 ML AMPUL.NEB NEB SCH ×2 (10:33→17:19)
[2017-09-23] MEDS: VANCOMYCIN 500 MG in IV D5W 100 ML IV SCH ×2 (11:10→23:37)
[2017-09-23] MEDS: POTASSIUM CHLORIDE 20 MEQ TAB.PRT.SR PO SCH ×2 (11:10→12:15)
[2017-09-23] MEDS: ALPRAZOLAM 1 MG TABLET PO PRN ×2 (11:10→22:53)
[2017-09-23] MEDS ORDERED: K PHOS NEUTRAL 250 MG TABLET PO ONE (15:00)
[2017-09-23 17:53] VITALS: BP 119/71
[2017-09-23 18:32] VITALS: BP 119/71
--- NOTE | 2017-09-23 18:33 | NUR ---
MS RN: CLOSING NOTE PT TOOK ALL MEDICATIONS ON TIME. NO ADVERSE REACTIONS NOTED. NO PAIN NOTED. NO SOB NOTED SATING AT 97% ON 4L NC. NO DISTRESS NOTED. A/OX2-3. CONTINENT USES BED HUERTA. AMBULATES WITH ASSIST. SKIN INTACT. CARDIAC DIET. L WRIST #20 RUNNING NS AT 100ML/HR. SITE CLEAR AND PATENT. RESTING COMFORTABLY IN BED. CALL LIGHT WITHIN REACH.
--- NOTE | 2017-09-23 19:58 | NUR ---
RN NOTES RECEIVED PATIENT IN BED, ALERT AND ORIENTED X2, CALM, NO SOB, ON 4LPM VIA NC, SPO2 99%, NO COMPLAIN OF PAIN AT THIS TIME, LEFT WRIST PERIPHERAL LINE IS PATENT AND INFUSING WELL, REPOSITIONED FOR COMFORT, CALL LIGHT WITHIN REACH.
[2017-09-23 20:00] VITALS: BP 111/55
[2017-09-23 20:05] VITALS: BP 111/55
[2017-09-23] MEDS: LEVOFLOXACIN 750 MG /D5W 150ML 750 MG in PREMIX 1 EA IV SCH (22:43)
--- NOTE | 2017-09-24 01:14 | NUR ---
RN NOTES COMPLAINING OF HEADACHE OF 3/10, GIVEN TYLENOL 650 MG PO PRN, WILL CONTINUE TO MONITOR
[2017-09-24] MEDS: IPRATROPIUM NEB FS 0.5 MG/2.5 ML AMPUL.NEB NEB SCH ×4 (02:13→19:42)
[2017-09-24] MEDS: ALBUTEROL FS 2.5 MG/0.5 ML VIAL.NEB NEB SCH ×4 (02:13→19:42)
--- NOTE | 2017-09-24 02:15 | NUR ---
RN NOTES PATIENT VERBALIZED RELIEF FROM HEADACHE. KEPT COMFORTABLE, CALL LIGHT WITHIN REACH.
--- NOTE | 2017-09-24 06:41 | NUR ---
RN NOTES PATIENT IN BED, ALERT AND AWAKE, NO SOB, TOLERATING 2LPM, [id number]%, NO ADVERSE CHANGE OF CONDITION DURING SHIFT, COMPLIANT WITH BREATHING TX AND MEDICATION. ABLE TO USE BEDPAN AND PROVIDED GOOD PERINEAL CARE, NEEDS ATTENDED, CALL LIGHT WITHIN REACH.
[2017-09-24] MEDS: IV NS 0.9% 1,000 ML IV SCH ×2 (07:00→11:18)
[2017-09-24 07:12] LABS: CALCIUM, SERUM 8.8 mg/dL (8.5-10.1); CREATININE 0.5 mg/dL (0.6-1.3); PHOSPHORUS 2.6 mg/dL (2.5-4.9); POTASSIUM 3.5 mmol/L (3.5-5.1)
--- NOTE | 2017-09-24 07:41 | NUR ---
RN OPENING NOTES RECEIVED PT. IN BED AWAKE, A&OX3. BREATHING UNLABORED, AND EVENLY ON OXYGEN AT 3L/MIN. NO S/S OF ACUTE DISTRESS. IV FLUIDS NEAR BEDSIDE. BED IS IN LOWEST, AND LOCKED POSITION. 2 SIDE RAILS UP, AND CALL LIGHT WITHIN REACH. WILL CONTINUE TO ASSESS AND MONITOR.
[2017-09-24 08:00] VITALS: BP 146/92
[2017-09-24] MEDS: MONTELUKAST SODIUM (10MG) 10 MG TABLET PO SCH (08:13)
[2017-09-24] MEDS: THEOPHYLLINE ANHYDROUS 300 MG TAB.SR.12H PO SCH ×2 (08:13→16:49)
[2017-09-24] MEDS: methylPREDNISolone SOD SUCC 40 MG/ML VIAL IV SCH (08:13)
[2017-09-24] MEDS: ASPIRIN 81 MG TAB.CHEW PO SCH (08:13)
[2017-09-24] MEDS: FLUTICASONE/VILANTEROL 1 EACH BLST.W.DEV IH SCH (08:13)
[2017-09-24] MEDS: ALPRAZOLAM 1 MG TABLET PO PRN ×2 (08:22→16:49)
[2017-09-24] MEDS: BUDESONIDE RESPULE INH 0.25 MG/2 ML AMPUL.NEB NEB SCH ×2 (09:38→16:46)
--- NOTE | 2017-09-24 11:00 | NUR ---
RN NOTES PT.'S HAS TACHYCARDIA, HEART RATE 120 BPM, CHARGE NURSE WAS MADE AWARE, THEN MD, NO NEW ORDERS WERE GIVEN. PER CHARGE NURSE PLACE PT. ON TELE MONITOR FOR OBSERVATION.
--- NOTE | 2017-09-24 11:13 | NUR ---
RN NOTES NOTIFIED PHARMACY PT.'S VANCO TROUGH IS LOW. PER PHARMACY OKAY TO GIVE IV ANTIBIOTICS.
[2017-09-24] MEDS: VANCOMYCIN 500 MG in IV D5W 100 ML IV SCH ×2 (11:18→17:59)
[2017-09-24 16:00] VITALS: BP 139/80
--- NOTE | 2017-09-24 19:30 | NUR ---
RN CLOSING NOTES PT. IN BED WITH HEAD OF BED UP, AWAKE, A&OX3. BREATHING UNLABORED, AND EVENLY ON OXYGEN AT 1L/MIN. NO S/S OF ACUTE DISTRESS. IV FLUIDS RUNNING AT 100 ML/HR. BED IS IN LOWEST, AND LOCKED POSITION. 2 SIDE RAILS UP, AND CALL LIGHT WITHIN REACH. WILL ENDORSE REPORT TO NURSE.
--- NOTE | 2017-09-24 19:45 | NUR ---
RN INITIAL NOTES RECEIVED PATIENT IN BED, ALERT AND ORIENTED X 3, NOTED WITH NO SOB, BREATHING EVEN AND UNLABORED, CONTINUES TO RECEIVE O2 VIA NC @2LPM, O2 SAT @ 92%. NOTED NS INFUSING @ 100 ML/HR VIA IV PERIPHERAL LINE ON LEFT WRIST, APTIENT TOLERATING WELL. PATIENT NOTED TO BE TACHYCARDIC AT 129 BPM, DR. GARCIA AWARE.
[2017-09-24 20:00] VITALS: BP 135/80
[2017-09-24 20:03] VITALS: BP 153/78
--- NOTE | 2017-09-24 21:38 | NUR ---
RN NOTES DR. OZZY TESFAYE INFORMED OF PATIENT'S CONDITION, CURRENTLY SINUS TACHYCARDIA @ 122BPM. RECEIVED NEW ORDER TO STOP IV HYDRATION AND TO ORDER STAT CXR 2 VIEWS. ALL ORDERS NOTED AND CARRIED OUT. PATIENT INFORMED AND AGREES WITH PLAN OF CARE.
[2017-09-24] MEDS ORDERED: LEVOFLOXACIN 750 MG /D5W 150ML 750 MG in PREMIX 1 EA IV SCH (23:00)
[2017-09-25] VITALS: BP 116/79
[2017-09-25 00:23] VITALS: BP 103/77
--- NOTE | 2017-09-25 01:34 | NUR ---
RN NOTES RELAYED CXR RESULT TO DR. OZZY TESFAYE, PT WITH SINUS TACHYCARDIA @ [address] PRECIADO WITH NO NEW ORDERS AND JUST TO CONTINUE TO MONITOR PT. PT ALERT AND ORIENTED X 3, NO C/O PAIN, NO SIGNS AND SYMPTOMS OF ACUTE DISTRESS AT THIS TIME. WILL CONTINUE TO MONITOR.
[2017-09-25] MEDS: VANCOMYCIN 500 MG in IV D5W 100 ML IV SCH ×2 (01:45→09:41)
[2017-09-25] MEDS: ALBUTEROL FS 2.5 MG/0.5 ML VIAL.NEB NEB SCH ×3 (01:53→15:32)
[2017-09-25] MEDS: IPRATROPIUM NEB FS 0.5 MG/2.5 ML AMPUL.NEB NEB SCH ×3 (01:53→15:32)
[2017-09-25] MEDS: ALPRAZOLAM 1 MG TABLET PO PRN (02:49)
--- NOTE | 2017-09-25 02:51 | NUR ---
RN NOTE PATIENT NOTED WITH EPISODES OF ANXIOUSNESS REGARDING HER DISCHARGE FROM HOSPITAL. INFORMED PT THAT WE NEED AN ORDER FROM THE DOCTOR TO MAKE SURE IT IS SAFE FOR HER TO DISCHARGE. PATIENT VERBALIZED UNDERSTANDING BUT CONTINUES TO VERBALIZE HER ANXIETY REGARDING DISCHARGE. OFFERED PATIENT HER XANAX AND PT VERBALIZED THAT SHE NEEDS HER BLUE PILL. MEDICATION GIVEN NEEDED.
[2017-09-25 04:00] VITALS: BP 113/70
--- NOTE | 2017-09-25 06:43 | NUR ---
RN CLOSING NOTES PATIENT IN BED, ASLEEP, EASILY AWOKEN, ALERT AND ORIENTED X 3, NO SOB NOTED, BREATHING EVEN AND UNLABORED, CONTINUES TO RECEIVE O2 VIA NC @2LPM, O2 SAT @ 92%. PT WITH NO C/O PAIN, NO SIGNS AND SYMPTOMS OF ACUTE DISTRESS. ALL PATIENT'S NEEDS ATTENDED TO, PLACED CALL LIGHT WITHIN EASY REACH.
[2017-09-25 06:54] LABS: CALCIUM, SERUM 10.1 mg/dL (8.5-10.1); CREATININE 0.5 mg/dL (0.6-1.3); POTASSIUM 3.6 mmol/L (3.5-5.1)
--- NOTE | 2017-09-25 07:47 | NUR ---
MS/RN OPENING NOTE PATIENT IN BED IN STABLE CONDITION. A/O X 2-3. NO SIGNS OF ACUTE DISTRESS. NO COMPLAIN OF PAIN OR DISCOMFORT. ALL NEEDS ATTENDED TO. CALL LIGHT WITHIN REACH. WILL CONTINUE TO MONITOR TO ENSURE SAFETY.
[2017-09-25 08:00] VITALS: BP 159/79
[2017-09-25] MEDS: ASPIRIN 81 MG TAB.CHEW PO SCH (08:55)
[2017-09-25] MEDS: MONTELUKAST SODIUM (10MG) 10 MG TABLET PO SCH (08:55)
[2017-09-25] MEDS: methylPREDNISolone SOD SUCC 40 MG/ML VIAL IV SCH (08:55)
[2017-09-25] MEDS: THEOPHYLLINE ANHYDROUS 300 MG TAB.SR.12H PO SCH (08:56)
[2017-09-25] MEDS: FLUTICASONE/VILANTEROL 1 EACH BLST.W.DEV IH SCH (08:56)
[2017-09-25] MEDS: BUDESONIDE RESPULE INH 0.25 MG/2 ML AMPUL.NEB NEB SCH (09:00)
--- NOTE | 2017-09-25 11:00 | NUR ---
m/s inspector soldering: notes received pt in bed awake, a/ox3. for d'c planning to [facility] today, pt aware. no c/o pain or any discomfort. instructed to call for assistance. will continue to monitor.
--- NOTE | 2017-09-25 12:10 | NUR ---
m/s filling station equipment mechanic: notes pt to go to [place] today at 5pm, pt aware and called her ; also nurse spoke to and given pt's room number and [facility] phone number over the phone.
--- NOTE | 2017-09-25 15:30 | NUR ---
tele braiding machine tender: d'c instructions discharged instructions given to pt and verbalized understanding. ambulance called and will be picking up pt before 1630, pt made aware.
--- NOTE | 2017-09-25 15:45 | NUR ---
tele committee member: notes h/l removed with tip intact with no bleeding, no redness, and no bleeding noted. tele removed. awaiting for ambulance to pick her up.
--- NOTE | 2017-09-25 16:15 | NUR ---
m/s bark press operator: notes ambulance here and report given to one of the crew.
--- NOTE | 2017-09-25 16:25 | NUR ---
m/s occupational health and safety manager: discharged discharged to [facility] in stable condition with all d'c papers and valuables via ambulance accompanied by 2 crew.
== END 2017-09-25 16:31 | DRG 193 ==
LOC: ER 22:31 → TELE 09-21 01:13 → MED 09-21 09:58
PROVIDERS: ADMIT Nurse Practitioner Acute Care; ATTEND Nurse Practitioner Acute Care
DX: J15.9 Unspecified bacterial pneumonia (principal); J96.21 Acute and chronic respiratory failure with hypoxia; I11.0 Hypertensive heart disease with heart failure; I50.9 Heart failure, unspecified; J96.22 Acute and chronic respiratory failure with hypercapnia; E44.0 Moderate protein-calorie malnutrition; R64 Cachexia; I50.32 Chronic diastolic (congestive) heart failure; J44.0 Chronic obstructive pulmonary disease with (acute) lower respiratory infection; J44.1 Chronic obstructive pulmonary disease with (acute) exacerbation; Z99.81 Dependence on supplemental oxygen; Z90.710 Acquired absence of both cervix and uterus; Z87.891 Personal history of nicotine dependence; Z79.899 Other long term (current) drug therapy; Z79.82 Long term (current) use of aspirin; Z79.51 Long term (current) use of inhaled steroids; Z85.41 Personal history of malignant neoplasm of cervix uteri; Z85.42 Personal history of malignant neoplasm of other parts of uterus; Z88.5 Allergy status to narcotic agent; F41.9 Anxiety disorder, unspecified; G47.00 Insomnia, unspecified; I25.10 Atherosclerotic heart disease of native coronary artery without angina pectoris; R91.1 Solitary pulmonary nodule
CPT/HCPCS: 36415; 71010-TC; 71020-TC; 80048-TC; 80076-TC; 80202-TC; 81000-TC; 83605-TC; 83735-TC; 84100-TC; 84484-TC; 85025-TC; 87040-TC; 87081-TC; 87086-TC; 94799-TC; A4216; J1956; J2920; J2930; J3370; J3490; J7030; J7060; Q9967; Z7610

== ENCOUNTER 2017-11-20 18:22 | Inpatient (IN) | payer MEDICARE, OTHER ==
[~2017-11-20] VITALS: Ht 160 cm; Wt 35.4 kg
[~2017-11-20 18:22] MED LIST changes: +ALBU18HF2 INH; +ALPR0.25 PO; +FLUT1DIS3 IH; +LEVO500T75 PO; +PRED20TA PO
--- NOTE | 2017-11-20 18:30 | NUR ---
[id number] FROM HOME: SOB x 1 WEEK. Hx OF COPD/ASTHMA. BS IN FIELD 123. PATIENT IS A/OX 4. BREATHING EVEN, SLIGHTLY LABORED. O2 SATURATION 91% ON 3L OXYGEN VIA NC. NAD. VITALS STABLE. SAFETY AND COMFORT MEASURES IN PLACE. AWAITING MD ORDERS.
[2017-11-20] MEDS ORDERED: Magnesium 1GM/D5W 100ML PREMIX 200 ML IV ONE ×2 (18:38→18:46)
[2017-11-20] MEDS ORDERED: DEXAMETHASONE SOD PHOSPHATE 10 MG/ML VIAL ONE (18:46)
--- NOTE | 2017-11-20 18:50 | NUR ---
NEW IV STARTED ON LFA, 20 G. , PATIENT MEDICATED PER MD ORDERS.
[2017-11-20] MEDS ORDERED: IPRATROPIUM NEB FS 0.5 MG/2.5 ML AMPUL.NEB NEB ONE (19:00)
[2017-11-20] MEDS ORDERED: DEXAMETHASONE SOD PHOSPHATE 10 MG/ML VIAL IV ONE (19:00)
[2017-11-20] MEDS ORDERED: ALBUTEROL FS 2.5 MG/3 ML VIAL.NEB CONTNEB ONE (19:00)
[2017-11-20 19:04] LABS: BASOPHILS # (AUTO) 0.4 /CMM (0.0-0.2); BASOPHILS % (AUTO) 2.1 % (0.0-2.0); HEMATOCRIT 33 % (33-45); HEMOGLOBIN 11.6 g/dL (11.5-14.8); LYMPHOCYTES # (AUTO) 0.5 /CMM (0.8-4.8); LYMPHOCYTES % (AUTO) 3.1 % (20.0-44.0); MEAN CORPUSCULAR HEMOGLOBIN 31 PG (26.0-33.0); MEAN CORPUSCULAR HGB CONC 35 g/dl (31.0-36.0); MEAN CORPUSCULAR VOLUME 90 fL (82-100); MONOCYTES # (AUTO) 0.2 /CMM (0.1-1.30); MONOCYTES % (AUTO) 1.1 % (2.0-12.0); NEUTROPHILS # (AUTO) 16.4 /CMM (1.8-8.9); NEUTROPHILS % (AUTO) 93.7 % (43.0-81.0); PLATELET COUNT (AUTO) 383 /CMM (150-450); RDW COEFFICIENT OF VARIATION 13.5 (11.5-15.0); WHITE BLOOD COUNT (AUTO) 17.5 K/uL (4.3-11.0)
--- NOTE | 2017-11-20 19:05 | NUR ---
PER DR. TANG, ADMINISTER 2 BAGS OF MAG OVER 20 MINUTES FOR SHORTNESS OF BREATH.
--- NOTE | 2017-11-20 19:16 | NUR ---
REPORT RECEIVED FROM ARLINE HERNADEZ FOR CYDNEY.
[2017-11-20 19:23] LABS: CALCIUM, SERUM 8.5 mg/dL (8.5-10.1); CARBON DIOXIDE 34 mmol/L (21-32); CHLORIDE 92 mmol/L (98-107); CREATININE 0.4 mg/dL (0.6-1.3); GLUCOSE 131 mg/dL (74-106); POTASSIUM 3.2 mmol/L (3.5-5.1); SODIUM SERUM 131 mmol/L (136-145); UREA NITROGEN, BLOOD 12 mg/dL (7-18)
--- NOTE | 2017-11-20 19:29 | NUR ---
REPORT GIVEN TO JAYSHREE NUNN FOR CYDNEY.
[2017-11-20 19:30] LABS: ALANINE AMINOTRANSFERASE 19 U/L (12-78); ALBUMIN 2.5 g/dL (3.4-5.0); ALKALINE PHOSPHATASE 101 U/L (46-116); ASPARTATE AMINOTRANSFERASE 21 U/L (15-37); BILIRUBIN,DIRECT 0.2 mg/dL (0.0-0.2); BILIRUBIN,TOTAL 0.5 mg/dL (0.2-1.0); TOTAL PROTEIN, SERUM 6.2 g/dL (6.4-8.2)
[2017-11-20 19:33] LABS: TROPONIN I < 0.017 ng/mL (0.00-0.056)
[2017-11-20] MEDS ORDERED: IPRATROPIUM NEB FS 0.5 MG/2.5 ML AMPUL.NEB ONE (19:33)
[2017-11-20] MEDS ORDERED: ALBUTEROL FS 2.5 MG/3 ML VIAL.NEB ONE (19:33)
[2017-11-20] MEDS ORDERED: CEFTRIAXONE 1GM BAG (ER ONLY) 50 ML IV ONE (20:19)
[2017-11-20] MEDS ORDERED: AZITHROMYCIN 500 MG VIAL ONE (20:19)
[2017-11-20] MEDS ORDERED: CEFTRIAXONE 1GM BAG (ER ONLY) 1 GM/50 ML PIGGYBACK IV ONE (20:30)
[2017-11-20] MEDS ORDERED: AZITHROMYCIN 500 MG in IV D5W 250 ML IV ONE (20:30)
--- NOTE | 2017-11-20 20:30 | NUR ---
pt complained of anxiety from 15 mg albuterol tx. pt taken off tx and placed on 3lnc. pt states sob is gone, and tx has helped her breathing already. will continue to monitor pt Addendum: 11/20/17 at 2057 by FABIO MERCEDES RT Amended: Links added.
--- NOTE | 2017-11-20 21:08 | NUR ---
tele [phone]
--- NOTE | 2017-11-20 21:16 | NUR ---
REPORT CALLED TO CARE TAKERARLINE VALENZUELA. WILL TRANSPORT PT VIA ACLS PROTOCOL.
--- NOTE | 2017-11-20 21:19 | NUR ---
DENNIS CLARK PAGED PER ER ORDER.
--- NOTE | 2017-11-20 21:25 | NUR ---
ER TALKING TI DENNIS VALENZUELA REGARDING PT ADMISSION. WILL TRANSPORT PT VIA ACLS PROTOCOL.
--- NOTE | 2017-11-20 21:37 | NUR ---
DENNIS MILLERP AT BEDSIDE TO BRODIE SCHAEFER.
[2017-11-20 22:00] VITALS: BP 104/64
--- NOTE | 2017-11-20 22:00 | NUR ---
DISCHARGE COORDINATOR ADMITTING NOTES: ADMITTED A 67 YO FEMALE PATIENT WHO WAS SEEN IN THE ER DUE TO WORSENING SHORTNESS OF BREATH X 2 WEEKS AT HOME. PATIENT WAS BROUGHT TO TELE FLOOR VIA GURARIN, AOX4, ON O2 AT 4 LPM VIA NC. PATIENT'S BREATHING APPEARS TO BE EVEN AND UNLABORED, BREATH SOUNDS CLEAR TO AUSCULTATION, NO WHEEZING NOTED AT THIS TIME. PATIENT DOES APPEAR CACHECTIC, AND APPEARS BARREL CHESTED. SKIN DRYNESS AND MOUTH DRYNESS ALSO NOTED. PER PATIENT, SHE DOES NOT HAVE ANY DIFFICULTY BREATHING, BUT CANNOT TOLERATE BEING FLAT ON BED. PIV OVER LFA G 20 INTACT AND CURRENTLY INFUSING WITH IV AZITHROMYCIN, WHICH WAS STARTED IN ER. ADMITTING CARE DONE. PROVIDED FOR COMFORT AND SAFETY. BED IN LOWEST AND LOCKED POSITION, SIDERAILS UP X 3. WILL CONT TO MONITOR.
[2017-11-20] MEDS ORDERED: Z GUARD REMEDY 2 OZ OINT TP PRN (22:30)
[2017-11-20] MEDS ORDERED: MAGNESIUM HYDROXIDE 30 ML UDC PO PRN (22:30)
[2017-11-20] MEDS ORDERED: ONDANSETRON HCL/PF 4 MG/2 ML VIAL IVP PRN (22:30)
[2017-11-20] MEDS ORDERED: HYDROCODONE/APAP 5/325MG 1 EACH TABLET PO PRN (22:30)
[2017-11-20] MEDS ORDERED: MAG HYDROX/AL HYDROX/SIMETH 30 ML UDC PO PRN (22:30)
[2017-11-20] MEDS: ACETAMINOPHEN 325 MG TABLET PO PRN (22:44)
[2017-11-20] MEDS: IV NS 0.9% 1,000 ML IV PRN (22:55)
[2017-11-21] VITALS: BP 102/61
[2017-11-21] MEDS ORDERED: POTASSIUM CHLORIDE 20 MEQ POWDER PACKET PO ONE (00:30)
[2017-11-21 04:00] VITALS: BP 112/68
[2017-11-21] MEDS: ACETAMINOPHEN 325 MG TABLET PO PRN (05:39)
[2017-11-21 06:42] LABS: APPEARANCE,URINE SL CLOUDY (CLEAR); BILIRUBIN,URINE NEGATIVE (NEGATIVE); BLOOD, URINE NEGATIVE Ery/uL (NEGATIVE); COLOR,URINE YELLOW (YELLOW); KETONES,URINE 1+ (NEGATIVE); LEUKOCYTE ESTERASE ,URINE TRACE (NEGATIVE); NITRITE, URINE NEGATIVE (NEGATIVE); PROTEIN,URINE NEGATIVE (NEGATIVE); UGLUCOSE 1+ mg/dL (NEGATIVE)
--- NOTE | 2017-11-21 06:48 | NUR ---
BAND MASTER CLOSING NOTES: PATIENT IN BED, AOX4, ON O2 AT 2 LPM VIA NC, BREATHING EVEN AND UNLABORED, NO SOB NOTED. BREATH SOUNDS CLEAR TO AUSCULTATION. ON TELE MONITOR: SR RATE OF 80S. PIV OVER LFA G 20 INTACT AND PATENT, INFUSING WELL WITH NS RUNNING AT 60 ML/HR. PROVIDED FOR COMFORT AND SAFETY. BED IN LOWEST AND LOCKED POSITION, SIDERAILS UP X 3, E[place] LIGHT WITHIN REACH. WILL ENDORSE TO AM RN FOR CYDNEY.
[2017-11-21 06:52] VITALS: BP 110/68
--- NOTE | 2017-11-21 07:10 | NUR ---
cornice maker initial notes Received patient in bed, awake, head of bed elevated, no SOB or distress noted, on 02 @ 2lpm via NC and tolerated well. Alert and oriented x 4, verbally responsive and able to make needs known. On tele monitor SR heart rate of 88, no complaint of pain or discomfort at this time. IV intact and patent with IVF infusing well. Kept patient clean and comfortable in bed, call light with in patient reach, will continue to monitor accordingly.
[2017-11-21] MEDS: ALBUTEROL FS 2.5 MG/0.5 ML VIAL.NEB NEB SCH ×3 (07:35→19:35)
[2017-11-21] MEDS: IPRATROPIUM NEB FS 0.5 MG/2.5 ML AMPUL.NEB NEB SCH ×6 (07:35→23:30)
[2017-11-21 08:00] VITALS: BP 101/70
[2017-11-21 08:05] LABS: BACTERIA,URINE Few /HPF (None Seen); SQUAMOUS EPITHELIAL CELL,UR Moderate /HPF (None Seen)
[2017-11-21 08:07] LABS: RBC,URINE 0-2 /HPF (0-2)
[2017-11-21] MEDS: methylPREDNISolone SOD SUCC 40 MG/ML VIAL IV SCH ×3 (08:19→17:10)
[2017-11-21] MEDS: ALPRAZOLAM 0.25 MG TABLET PO SCH ×2 (08:19→17:10)
[2017-11-21 08:38] LABS: HEMATOCRIT 29 % (33-45); HEMOGLOBIN 9.8 g/dL (11.5-14.8); LYMPHOCYTES # (AUTO) 0.8 /CMM (0.8-4.8); LYMPHOCYTES % (AUTO) 5.4 % (20.0-44.0); MEAN CORPUSCULAR HEMOGLOBIN 31 PG (26.0-33.0); MEAN CORPUSCULAR HGB CONC 34 g/dl (31.0-36.0); MEAN CORPUSCULAR VOLUME 92 fL (82-100); MONOCYTES # (AUTO) 0.1 /CMM (0.1-1.30); MONOCYTES % (AUTO) 0.7 % (2.0-12.0); NEUTROPHILS # (AUTO) 13.5 /CMM (1.8-8.9); NEUTROPHILS % (AUTO) 93.9 % (43.0-81.0); PLATELET COUNT (AUTO) 313 /CMM (150-450); RDW COEFFICIENT OF VARIATION 14.2 (11.5-15.0); RED BLOOD CELL COUNT(AUTO) 3.16 MIL/uL (4.0-5.2); WHITE BLOOD COUNT (AUTO) 14.4 K/uL (4.3-11.0)
[2017-11-21] MEDS: FLUTICASONE/SALMETEROL DISKUS IH SCH ×2 (08:45→17:13)
[2017-11-21 08:56] LABS: CALCIUM, SERUM 8.2 mg/dL (8.5-10.1); CREATININE 0.3 mg/dL (0.6-1.3); PHOSPHORUS 2.3 mg/dL (2.5-4.9); POTASSIUM 3.8 mmol/L (3.5-5.1)
[2017-11-21] MEDS ORDERED: Medication Not On Formulary EA (Budesonide/Formoterol Fumarate (Symbicort 160-4.5 Mcg In INH SCH (09:00)
[2017-11-21] MEDS ORDERED: ENOXAPARIN SODIUM 40 MG/0.4 ML DISP.SYRIN SQ SCH (09:00)
[2017-11-21] MEDS ORDERED: ASPIRIN 81 MG TAB.CHEW PO SCH (09:00)
[2017-11-21] MEDS ORDERED: MONTELUKAST SODIUM (10MG) 10 MG TABLET PO SCH (09:00)
[2017-11-21] MEDS ORDERED: THEOPHYLLINE ANHYDROUS 300 MG TAB.SR.12H PO SCH (09:00)
[2017-11-21 09:08] LABS: THYROID STIMULATING HORMONE 0.416 uIU/mL (0.358-3.74)
[2017-11-21] MEDS ORDERED: THEOPHYLLINE TAB 24HR 400 MG TAB.SR. PO SCH (12:00)
[2017-11-21] MEDS ORDERED: IOHEXOL-300 100 ML VIAL IV ONE (12:15)
[2017-11-21] MEDS ORDERED: CT SWABBABLE VALVE TRANS SET 1 EA INFUS.SET MC ONE (12:16)
[2017-11-21] MEDS ORDERED: DIATR MEGLU/DIATRIZOATE SODIUM 30 ML BOTTLE (GASTROGRAPHIN) ONE (12:17)
--- NOTE | 2017-11-21 15:50 | NUR ---
MS/RN NOTE THEOPHYLLINE 400 WAS ADMINISTERED LATE DUE TO PHARM LATE DELIVERY.
[2017-11-21 16:00] VITALS: BP 106/60
[2017-11-21] MEDS: POTASSIUM PHOSPHATE MM 5 MMOL in IV NS 0.9% 100 ML IV SCH ×2 (16:00→17:13)
--- NOTE | 2017-11-21 16:09 | NUR ---
MS/RN NOTE FOLLOW UP CALLS ARE MADE TO PHARM AND STILL WAITING FOR POTASSIUM PHOSPHATE DELIVERY.
[2017-11-21] MEDS: IV NS 0.9% 1,000 ML IV PRN (17:13)
[2017-11-21 20:00] VITALS: BP 120/60
[2017-11-21] MEDS ORDERED: CEFTRIAXONE 1 G in IV D5W 50 ML IV SCH (20:00)
[2017-11-21] MEDS ORDERED: AZITHROMYCIN 500 MG in IV D5W 250 ML IV SCH (21:00)
--- NOTE | 2017-11-22 03:13 | NUR ---
DUPLICATE ORDER FOR ATROVENT
[2017-11-22 06:37] LABS: BASOPHILS % (AUTO) 0.1 % (0.0-2.0); HEMATOCRIT 31 % (33-45); HEMOGLOBIN 10.4 g/dL (11.5-14.8); LYMPHOCYTES # (AUTO) 0.7 /CMM (0.8-4.8); LYMPHOCYTES % (AUTO) 4.1 % (20.0-44.0); MEAN CORPUSCULAR HEMOGLOBIN 32 PG (26.0-33.0); MEAN CORPUSCULAR HGB CONC 34 g/dl (31.0-36.0); MEAN CORPUSCULAR VOLUME 93 fL (82-100); MONOCYTES # (AUTO) 0.3 /CMM (0.1-1.30); MONOCYTES % (AUTO) 2.1 % (2.0-12.0); NEUTROPHILS # (AUTO) 15.4 /CMM (1.8-8.9); NEUTROPHILS % (AUTO) 93.7 % (43.0-81.0); PLATELET COUNT (AUTO) 314 /CMM (150-450); RDW COEFFICIENT OF VARIATION 14.7 (11.5-15.0); RED BLOOD CELL COUNT(AUTO) 3.32 MIL/uL (4.0-5.2); WHITE BLOOD COUNT (AUTO) 16.5 K/uL (4.3-11.0)
[2017-11-22 07:06] LABS: CALCIUM, SERUM 8.8 mg/dL (8.5-10.1); CREATININE 0.3 mg/dL (0.6-1.3); MAGNESIUM 1.8 mg/dL (1.8-2.4); POTASSIUM 3.2 mmol/L (3.5-5.1)
--- NOTE | 2017-11-22 07:36 | NUR ---
NOTE OPENING NOTE PATIENT IN BED AWAKE. ALERT AND ORIENTED X4. ON OXYGEN AT 2L/MIN VIA NC. RESPIRATION REGULAR AND UNLABORED. DENIES SOB AND UNLABORED. IN NO APPARENT DISTRESS. BED LOW AND LOCKED. SIDE RAILS UP X2. CALL LIGHT WITHIN REACH. WILL CONTINUE TO MONITOR.
--- NOTE | 2017-11-22 08:16 | NUR ---
NOTE DESPITE EXPLAINING RISKS OF LEAVING THE HOSPITAL AMA, THE PATIENT INSISTED TO LEAVE AMA.
--- NOTE | 2017-11-22 08:16 | NUR ---
NOTE AMA PATIENT ALERT AND ORIENTED X4. DENIES SOB, PAIN AT THIS TIME. SIGH AMA AND LEFT THE HOSPITAL WITH . PATIENT LEFT THE FACILITY IN STABLE CONDITION.
[2017-11-22 10:09] LABS: BAND % (MANUAL) 2 % (0.0-5.0); NEUTROPHILS % (MANUAL) 87 (42-76)
[2017-11-22 10:10] LABS: LYMPHOCYTES % (MANUAL) 6 % (16-48); MONOCYTES % (MANUAL) 5 % (0-11.0)
== END 2017-11-22 08:05 | disposition left against medical advice (07) | DRG 871 ==
LOC: ER 18:23 → TELE 21:30 → MED 11-21 10:14
PROVIDERS: ADMIT Nurse Practitioner Acute Care; ATTEND Nurse Practitioner Acute Care
DX: A41.9 Sepsis, unspecified organism (principal); J96.20 Acute and chronic respiratory failure, unspecified whether with hypoxia or hypercapnia; E44.0 Moderate protein-calorie malnutrition; E87.1 Hypo-osmolality and hyponatremia; J44.1 Chronic obstructive pulmonary disease with (acute) exacerbation; J44.0 Chronic obstructive pulmonary disease with (acute) lower respiratory infection; I50.32 Chronic diastolic (congestive) heart failure; I11.0 Hypertensive heart disease with heart failure; Z99.81 Dependence on supplemental oxygen; Z90.710 Acquired absence of both cervix and uterus; Z87.891 Personal history of nicotine dependence; Z85.42 Personal history of malignant neoplasm of other parts of uterus; Z79.899 Other long term (current) drug therapy; Z79.82 Long term (current) use of aspirin; Z79.51 Long term (current) use of inhaled steroids; F41.9 Anxiety disorder, unspecified; E87.6 Hypokalemia; Z88.5 Allergy status to narcotic agent; I25.10 Atherosclerotic heart disease of native coronary artery without angina pectoris; J20.9 Acute bronchitis, unspecified; R91.8 Other nonspecific abnormal finding of lung field; J98.4 Other disorders of lung; E86.1 Hypovolemia
CPT/HCPCS: 36415; 71045-TC; 71260-TC; 80048-TC; 80061-TC; 80076-TC; 81000-TC; 83605-TC; 83735-TC; 84100-TC; 84443-TC; 84484-TC; 85025-TC; 87040-TC; 87081-TC; 87086-TC; A4606; J0456; J0696; J1100; J1650; J2920; J3475; J3490; J7030; J7060; Q9963; Q9967; Z7610